=== PATIENT | female | born 1950 | race Caucasian/White ===

== ENCOUNTER 2024-03-20 11:15 | Outpatient (RCR) | payer MEDICARE, SELFPAY ==
--- NOTE | 2024-01-04 13:13 | ST.OPIE ---
Visit Care Team Role Provider Type Mojgan Winston PA-C Family Provider Non-Staff Primary Care Provider Specialty: Medical Address: [address] [place] [address], [id number] Email: Ralf Watkins MD Attending Provider Physician Referring Provider Specialty: Ear, Nose, Throat Address: [address] [place] [address], [id number] Email: [email or web address] Speech-Language Pathology Initial Evaluation BILL CUTTER Voice Resonance Evaluation Start: 01/03/24 15:19 Freq: Status: Active Protocol: Document 01/03/24 15:19 ZITA (Rec: 01/03/24 15:21 MA [id number]) Voice and Resonance Assessment Session Time Visit Start Time 15:15 Visit Stop Time 16:00 Total Visit Minutes 45 Visit Information Visit Number Initial Evaluation Plan of Care Dates 01/03/24-04/04/24 Insurance Information Medicare Next Note Type Next Note Type Treatment Note Referral Referring Physician Dr. Watkins ENT Reason for Referral Vocal cord paralysis Setting Setting Outpatient Care Patient History Patient History Pt is a 73 year old female seen this date for voice evaluation d/y vocal cord paralysis s/p parathyroidectomy on 10/04/23. She reports no voice difficulties prior to surgery. She states her vocal quality varies throughout the day. She reports plan to have surgery on vocal cords, however no date confirmed and still working on the referral/auth. She reports right vocal cord paralysis that was identified during her ENT visit where she had an endoscopy completed. She reports her voice issue frustrates her more than anything and she would love to get it figured out sooner rather than later. Hearing Hearing Level Normal Vision Vision Status Not Impaired Occupational Status Occupation Status Retired Previous Therapy Previous Speech-Language Therapy No Oral Motor Assessment Source: [employer] (FAWAD). Oral-Motor Eval Completed Yes Oral-Motor Assessment Oral motor exam revealed oral musculature WFL. - Laryngeal Performance S/Z Ratio S/Z Ratio 2.7 Functional for Speech Yes: Breathy Reduced Laryngeal Function Relative to Yes Respiration Voice Handicap Index Function Subtotal 23 Physical Subtotal 18 Emotional Subtotal 15 Total Score 56 Severity Moderate (31-60) Maximum Phonation Time MPT Norms: Women (15-25) Men (25-35) Loudness (50-60 dB); Speaking Rate: Oral Reading of Sentences (190 Words Per Minute); Oral Reading of Paragraphs (160-170 WPM); Speaking Rate in Conversation (150-250 WPM) Maximum Phonation Time 16.5 Maximum Phonation Time Adequate for Speech Pitch [place] Pitch [place] Pitch Breaks Muscle Tension Assessment Muscle Tension Assessment None Breath Support Breath Support At Rest Thoracic Breath Support Sustained Phonation Thoracic Breath Support Conversation Thoracic Postural Alignment Stance Balanced Findings Findings Moderate Impairment Observations Pt presents with a moderate voice impairment characterized by breathy vocal quality and low volume secondary to right vocal fold paralysis. She reports on the Voice Handicap Index-10 (VHI-10) that her voice problem always upsets her and that people have trouble understanding her in a noisy room. She reports overall frustration with her voice problem and states it has been impacting her social life and would like to be able to communicate more effectively. ST is warranted in order to improve vocal quality through use of vocal adduction exercises and vocal function exercises. Prognosis Rehabilitation Potential Excellent - Recommendations Treatment Recommended Yes Treatment Frequency/Duration 1x/week 3 months Therapy Recommendations Voice therapy is recommended to improve vocal quality through use of vocal adduction exercises and vocal function exercises Short Term Goals STG 1: Pt will complete vocal adduction exercises to improve vocal quality and patient's overall intelligibility of verbal communication. STG 2: Pt will demonstrate knowledge of good vocal hygiene practices in order to promote carryover. STG 3: Pt will decrease VHI-10 score from a 56 down in the range of 0-30. Relay Engineer Goals LTG 1: Pt will successfully and independently verbally express novel ideas/questions at an improve overall vocal quality. Patient/Caregiver Education Patient/Family Education Described results of evaluation,Patient Understanding,Patient Needs More Info
--- NOTE | 2024-01-04 13:13 | ST.OPPOC ---
Physical, Occupational & Speech Therapy At [facility] Visit Care Team Role Provider Type Mojgan Winston PA-C Family Provider Non-Staff Primary Care Provider Address: [address] [place] [address], [address] Ralf Watkins MD Attending Provider Physician Referring Provider Address: [address] [place] [address], [address] Speech Pathology Plan of Care Plan of Care Dates 01/03/24-04/04/[address] Watkins ENT Patient History Pt is a 73 year old female seen this date for voice evaluation d/y vocal cord paralysis s/p parathyroidectomy on 10/04/23. She reports no voice difficulties prior to surgery. She states her vocal quality varies throughout the day. She reports plan to have surgery on vocal cords, however no date confirmed and still working on the referral/auth. She reports right vocal cord paralysis that was identified during her ENT visit where she had an endoscopy completed. She reports her voice issue frustrates her more than anything and she would love to get it figured out sooner rather than later. Voice/Resonance Findings Moderate Impairment Voice/Resonance Prognosis Excellent Voice/Resonance Yes Recommendations Voice/Resonance Treatment 1x/week 3 months Frequency Therapy Recommendations Voice therapy is recommended to improve vocal quality through use of vocal adduction exercises and vocal function exercises Short Term Goals STG 1: Pt will complete vocal adduction exercises to improve vocal quality and patient's overall intelligibility of verbal communication. STG 2: Pt will demonstrate knowledge of good vocal hygiene practices in order to promote carryover. STG 3: Pt will decrease VHI-10 score from a 56 down in the range of 0-30. Fdc Goals LTG 1: Pt will successfully and independently verbally express novel ideas/questions at an improve overall vocal quality. Comment: Electronically Signed by: DONNA Grady 01/04/24 [id number] If you are in agreement with this Plan of Care, please return a signed and dated copy. I have reviewed this Plan of Care and certify that the skilled therapy services above are required to meet the patient?s needs. Physician Signature Date Printed Name and Credentials Clinical Instructor Signature Printed Name and Credentials
--- NOTE | 2024-01-31 17:09 | ST.OPTN ---
Visit Care Team Role Provider Type Mojgan Winston PA-C Family Provider Non-Staff Primary Care Provider Address: [address] [place] [address], [place], [address] Ralf Watkins MD Attending Provider Physician Referring Provider Address: [address] [place] [address], [address] DRAGLINE OPERATOR HELPER Treatment Note DRAGLINE OPERATOR HELPER Treatment Note Start: 01/31/24 17:04 Freq: Status: Active Protocol: Document 01/31/24 17:04 ZITA (Rec: 01/31/24 17:09 CA [id number]) Speech Pathology Treatment Note Session Time Visit Start Time 16:45 Visit Stop Time 17:05 Total Visit Minutes 20 Visit Information Visit Number 2 Plan of Care Dates 01/03/24-04/04/24 Next Note Type Next Note Type Treatment Note General Information Patient History Pt is a 73 year old female seen this date for voice evaluation d/y vocal cord paralysis s/p parathyroidectomy on 10/04/23. She reports no voice difficulties prior to surgery. She states her vocal quality varies throughout the day. She reports plan to have surgery on vocal cords, however no date confirmed and still working on the referral/auth. She reports right vocal cord paralysis that was identified during her ENT visit where she had an endoscopy completed. She reports her voice issue frustrates her more than anything and she would love to get it figured out sooner rather than later. Subjective Observations/Patient Presentation Pt arrived to therapy on time. Objective Cattle Sorter Goals LTG 1: Pt will successfully and independently verbally express novel ideas/questions at an improve overall vocal quality. Treatment Activities Vocal function exercises, vocal adduction exercises Assessment Patient Response to Treatment Excellent Rehab Potential Excellent Progress Towards Goals Good Progress Assessment of Improvement Pt reports she has been doing her voice exercises at home, but not consistently d/t vacation. However, she states she is going to start doing them more consistently. She states no changes to her voice . Her voice appeared soft, breathy. ST facilitated vocal function/adduction exercises in order to improve vocal quality. Pt completed 10 reps of sustained /ah/ and pitch glides up/down, which Pt completed with 100% accuracy with no pitch breaks and clear voice. She sustained /ah/ for about 16 seconds. She completed 10 reps of vocal adduction exercises with increasing vocal hoarseness as task progressed. Pt benefited from rest breaks and drinking water in between reps, which ST encouraged Pt also do at home. Pt reports she has surgery scheduled february to plump up her vocal cord. She states she has an appointment with Dr. Watkins, ENT in about 2 weeks to discuss the surgery. ST recommended Pt continue voice exercises at home 2-3x/day [address] also recommended Pt be seen after visit with ENT and after surgery. Pt verbalized understanding.
--- NOTE | 2024-02-15 14:22 | ST.OPTN ---
Visit Care Team Role Provider Type Mojgan Winston PA-C Family Provider Non-Staff Primary Care Provider Address: [address] [place] [address], [place], [address] Ralf Watkins MD Attending Provider Physician Referring Provider Address: [address] [place] [address], [address] ELECTRICAL HELPER Treatment Note ELECTRICAL HELPER Treatment Note Start: 01/31/24 17:04 Freq: Status: Active Protocol: Document 02/15/24 14:18 MA (Rec: 02/15/24 14:22 MA [id number]) Speech Pathology Treatment Note Session Time Visit Start Time 13:45 Visit Stop Time 14:15 Total Visit Minutes 30 Visit Information Visit Number 3 Plan of Care Dates 01/03/24-04/04/24 Next Note Type Next Note Type Treatment Note General Information Patient History Pt is a 73 year old female seen this date for voice evaluation d/y vocal cord paralysis s/p parathyroidectomy on 10/04/23. She reports no voice difficulties prior to surgery. She states her vocal quality varies throughout the day. She reports plan to have surgery on vocal cords, however no date confirmed and still working on the referral/auth. She reports right vocal cord paralysis that was identified during her ENT visit where she had an endoscopy completed. She reports her voice issue frustrates her more than anything and she would love to get it figured out sooner rather than later. Subjective Observations/Patient Presentation Pt arrived to therapy on time. Pt reports she has been doing her exercises, however does not notice a huge change in her voice at this time. Objective [facility] Goals LTG 1: Pt will successfully and independently verbally express novel ideas/questions at an improve overall vocal quality. Treatment Activities vocal adduction exercises, resonance exercises Assessment Patient Response to Treatment Excellent Rehab Potential Excellent Progress Towards Goals Good Progress Assessment of Improvement Pt reports she has been doing her voice exercises at home. She states no changes to her voice. Her voice appeared soft , breathy. ST facilitated vocal function/adduction exercises in order to improve vocal quality. Pt completed 10 reps of sustained /ah/ and pitch glides up/down, which Pt completed with 100% accuracy with no pitch breaks and clear voice. She sustained /ah/ for about 18 seconds with clear vocal quality. She completed 10 reps of vocal adduction exercises with increasing vocal hoarseness as task progressed. Pt benefited from rest breaks and drinking water in between reps, which ST encouraged Pt also do at home. Pt reports she has surgery scheduled february to plump up her vocal cord. She states she has an appointment with Dr. Watkins, ENT in about 1 week to discuss the surgery. ST introduced resonance exercises and provided explanation as to why . Pt completed resonance exercises with 100% accuracy requiring mild cues. ST recommended Pt continue voice exercises at home 2-3x/day [address] also recommended Pt be seen after visit with ENT and after surgery. Pt verbalized understanding.
--- NOTE | 2024-03-20 11:48 | ST.OPTN ---
Visit Care Team Role Provider Type Mojgan Winston PA-C Family Provider Non-Staff Primary Care Provider Address: [address] [place] [address], [address] Ralf Watkins MD Attending Provider Physician Referring Provider Address: [address] [place] [address], [address] HEARING AND SPEECH ASSISTANT Treatment Note HEARING AND SPEECH ASSISTANT Treatment Note Start: 01/31/24 17:04 Freq: Status: Active Protocol: Document 03/20/24 11:41 MA (Rec: 03/20/24 11:48 MA [id number]) Speech Pathology Treatment Note Session Time Visit Start Time 11:15 Visit Stop Time 11:45 Total Visit Minutes 30 Visit Information Visit Number 4 Plan of Care Dates 01/03/24-04/04/24 Next Note Type Next Note Type Discharge Summary General Information Patient History Pt is a 73 year old female seen this date for voice evaluation d/y vocal cord paralysis s/p parathyroidectomy on 10/04/23. She reports no voice difficulties prior to surgery. She states her vocal quality varies throughout the day. She reports plan to have surgery on vocal cords, however no date confirmed and still working on the referral/auth. She reports right vocal cord paralysis that was identified during her ENT visit where she had an endoscopy completed. She reports her voice issue frustrates her more than anything and she would love to get it figured out sooner rather than later. Subjective Identification Type Name Observations/Patient Presentation Pt arrived to therapy on time. Objective Short Term Goals STG 1: Pt will complete vocal adduction exercises to improve vocal quality and patient's overall intelligibility of verbal communication.- MET STG 2: Pt will demonstrate knowledge of good vocal hygiene practices in order to promote carryover.- MET STG 3: Pt will decrease VHI-10 score from a 56 down in the range of 0-30.- MET Physical Anthropologist Goals LTG 1: Pt will successfully and independently verbally express novel ideas/questions at an improve overall vocal quality. - MET Treatment Activities Discharge recommendations, VHI -10 Assessment Patient Response to Treatment Excellent Rehab Potential Excellent Progress Towards Goals Good Progress,Appropriate for Discharge Assessment of Overall Progress Improving Assessment of Improvement Pt reports she had surgery on her vocal fold about 2 weeks ago and notices a huge improvement with her voice. She states today it sounds a little more hoarse, but overall is very happy with her voice quality. She reports she continues to complete voice exercises, however reduced how much she has been doing them in order to rest voice after surgery. ST assessed maximum phonation time with sustained /ah/. Pt sustained /ah/ for about 18 seconds with clear vocal quality. Pt with overall improved quality and loudness. ST facilitated conversation in regards to discharge from therapy. Pt in agreeance. ST facilitated VHI-10. Pt scored a total score of 20 (mild) compared to initial eval score of 56 (moderate) indicating an overall increase in Pt's subjective views of voice. ST recommends Pt continue to practice good vocal hygiene practices and complete voice exercises at home 2-3x/day [address] recommends Pt return to therapy if any changes occur. Pt verbalized understanding. Reviewed with Patient Goals,Progress Being Made,Home Exercise Program Patient/Caregiver Understanding Excellent Plan Frequency of Treatment No Further Therapy Provided Patient/Caregiver Instruction Home Exercise Program,Plan of Care,Questions/Concerns
== END 2024-03-21 10:40 | disposition home or self-care (01) ==
LOC: SP 11:15
PROVIDERS: Family Provider Physician Assistant; PCP Physician Assistant; Referring Provider Otolaryngology; Visit Provider Otolaryngology
DX: J38.00 Paralysis of vocal cords and larynx, unspecified (principal)
CPT/HCPCS: 92507; 92523

== ENCOUNTER 2024-08-14 14:30 | Outpatient (RCR) | payer MEDICARE, SELFPAY ==
--- NOTE | 2024-05-22 17:41 | ST.OPIE ---
Visit Care Team Role Provider Type Mojgan Winston PA-C Family Provider Non-Staff Primary Care Provider Specialty: Medical Address: [address] [place], [address] Email: CLARENCE Bryan Attending Provider Non-Staff Referring Provider Specialty: Family Practice Address: [address], [place], [address] Email: Speech-Language Pathology Initial Evaluation CLINICAL MANAGER Voice Resonance Evaluation Start: 05/22/24 15:50 Freq: Status: Active Protocol: Document 05/22/24 15:52 ZITA (Rec: 05/22/24 16:02 ZITA [id number]) Voice and Resonance Assessment Session Time Visit Start Time 15:15 Visit Stop Time 16:00 Total Visit Minutes 45 Visit Information Visit Number Initial Evaluation Plan of Care Dates 05/22/24-08/22/24 Insurance Information Medicare Referral Referring Physician Dr. Nassar Reason for Referral Vocal cord paralysis Setting Setting Outpatient Care Patient History Patient History Pt is a 73 year old female seen this date for voice evaluation d/t vocal cord paralysis s/p parathyroidectomy on 10/04/23. Pt is familiar to this therapist d/t participating in speech therapy from 01/04/24-. Pt discharged from therapy d/t having Prolaryn gel injection into R paralyzed vocal cord on 03/07/24 with improvements in speech. Pt returns d/t her stating injection helped her voice for about 2 months and then started to fail about 2-3 weeks ago. She states that she choked on a pill around that time resulting in a lot of coughing, which she reports is about the time her voice started to sound hoarse again. She reports plan to see a Tax Accountant beginning of July, if not sooner if she can get in. She states her voice isn't as bad as it was prior to injection, however continues to sound hoarse with reduced volume, which causes the Pt a lot of frustration. Hearing Hearing Level Normal Vision Vision Status Not Impaired Occupational Status Occupation Status Retired Previous Therapy Previous Speech-Language Therapy Yes History of Previous Therapy Pt participated in outpatient speech therapy at this clinic with this therapist from December- Sept 2024. Oral Motor Assessment Source: [employer] (FAWAD). Oral-Motor Eval Completed Yes Oral-Motor Assessment Oral motor exam revealed oral musculature WFL. - Laryngeal Performance S/Z Ratio S/Z Ratio 4.6 Functional for Speech Yes: Breathy Reduced Laryngeal Function Relative to Yes Respiration Voice Handicap Index Function Subtotal 13 Physical Subtotal 17 Emotional Subtotal 15 Total Score 45 Severity Moderate (31-60) Maximum Phonation Time MPT Norms: Women (15-25) Men (25-35) Loudness (50-60 dB); Speaking Rate: Oral Reading of Sentences (190 Words Per Minute); Oral Reading of Paragraphs (160-170 WPM); Speaking Rate in Conversation (150-250 WPM) Maximum Phonation Time 16.5 Maximum Phonation Time Adequate for Speech Pitch [place] Pitch [place] Pitch Breaks Muscle Tension Assessment Muscle Tension Assessment None Breath Support Breath Support At Rest Thoracic Breath Support Sustained Phonation Thoracic Breath Support Conversation Thoracic Postural Alignment Stance Balanced Voice Pitch Range Norms: Women (100-300 Hz) Men (70-250 Hz) Fundamental Frequency Norms: Women (Mean: 225 Hz; Range: 155-334 Hz) Men ( Mean: 128 Hz; Range: 85-196 Hz) Voice Loudness Mildly Soft/Quiet Voice Phonatory-based Quality Breathy,Hoarse Resonance Nasal Resonance Normal Findings Findings Mild-Moderate Impairment Observations Pt presents with a mild- moderate voice impairment characterized by breathy/ hoarse vocal quality and low volume secondary to right vocal fold paralysis. She reports on the Voice Handicap Index-10 (VHI-10) a score of 45, which is reduced from previous evaluation. She reports overall frustration with her voice problem and states it has been impacting her social life and would like to be able to communicate more effectively. Pt reports plan to do voice therapy as well as going back to an ENT to see about getting another injection. ST is warranted in order to improve vocal quality through use of vocal adduction exercises and vocal function exercises. Prognosis Rehabilitation Potential Excellent - Recommendations Treatment Recommended Yes Treatment Frequency/Duration 1x/week 3 months Therapy Recommendations Voice therapy is recommended to improve vocal quality through use of vocal adduction exercises and vocal function exercises Short Term Goals STG 1: Pt will complete vocal adduction exercises/resonant voice exercises to improve vocal quality and patient's overall intelligibility of verbal communication. STG 2: Pt will demonstrate knowledge of good vocal hygiene practices in order to promote carryover. STG 3: Pt will decrease VHI-10 score from a 45 down in the range of 0-30. Care Home Goals LTG 1: Pt will successfully and independently verbally express novel ideas/questions at an improve overall vocal quality. Referrals Referrals ENT Patient/Caregiver Education Patient/Family Education Described results of evaluation,Patient Understanding,Patient Needs More Info
--- NOTE | 2024-05-22 17:42 | ST.OPPOC ---
Physical, Occupational & Speech Therapy At [facility] Visit Care Team Role Provider Type Mojgan Winston PA-C Family Provider Non-Staff Primary Care Provider Address: [address], [place], [address] CLARENCE Bryan Attending Provider Non-Staff Referring Provider Address: [address], [place], [address] Speech Pathology Plan of Care Plan of Care Dates 05/22/24-08/22/[address] Nassar Patient History Pt is a 73 year old female seen this date for voice evaluation d/t vocal cord paralysis s/p parathyroidectomy on 10/04/23. Pt is familiar to this therapist d/t participating in speech therapy from 01/04/24-03/20/25. Pt discharged from therapy d/t having Prolaryn gel injection into R paralyzed vocal cord on 03/07/24 with improvements in speech. Pt returns d/t her stating injection helped her voice for about 2 months and then started to fail about 2-3 weeks ago. She states that she choked on a pill around that time resulting in a lot of coughing, which she reports is about the time her voice started to sound hoarse again. She reports plan to see a Textile Finisher beginning of July, if not sooner if she can get in. She states her voice isn't as bad as it was prior to injection, however continues to sound hoarse with reduced volume, which causes the Pt a lot of frustration . Voice/Resonance Findings Mild-Moderate Impairment Voice/Resonance Prognosis Excellent Voice/Resonance Yes Recommendations Voice/Resonance Treatment 1x/week 3 months Frequency Therapy Recommendations Voice therapy is recommended to improve vocal quality through use of vocal adduction exercises and vocal function exercises Short Term Goals STG 1: Pt will complete vocal adduction exercises/resonant voice exercises to improve vocal quality and patient's overall intelligibility of verbal communication. STG 2: Pt will demonstrate knowledge of good vocal hygiene practices in order to promote carryover. STG 3: Pt will decrease VHI-10 score from a 45 down in the range of 0-30. Lens Molding Equipment Operator Goals LTG 1: Pt will successfully and independently verbally express novel ideas/questions at an improve overall vocal quality. Comment: Electronically Signed by: DONNA Gardy 05/22/243 If you are in agreement with this Plan of Care, please return a signed and dated copy. I have reviewed this Plan of Care and certify that the skilled therapy services above are required to meet the patient?s needs. Physician Signature Date Printed Name and Credentials Clinical Instructor Signature Printed Name and Credentials
--- NOTE | 2024-05-29 15:47 | ST.OPTN ---
Visit Care Team Role Provider Type Mojgan Winston PA-C Family Provider Non-Staff Primary Care Provider Address: [address], [place], [address] CLARENCE Bryan Attending Provider Non-Staff Referring Provider Address: [address], [place], [address] EQUINE INTERN Treatment Note EQUINE INTERN Treatment Note Start: 05/29/24 15:40 Freq: Status: Active Protocol: Document 05/29/24 15:40 MA (Rec: 05/29/24 15:47 MA [id number]) Speech Pathology Treatment Note Session Time Visit Start Time 15:15 Visit Stop Time 15:45 Total Visit Minutes 30 Visit Information Visit Number 2 Plan of Care Dates 05/22/24-08/22/24 General Information Patient History Pt is a 73 year old female seen this date for voice evaluation d/t vocal cord paralysis s/p parathyroidectomy on 10/04/23. Pt is familiar to this therapist d/t participating in speech therapy from 01/04/24-. Pt discharged from therapy d/t having Prolaryn gel injection into R paralyzed vocal cord on 03/07/24 with improvements in speech. Pt returns d/t her stating injection helped her voice for about 2 months and then started to fail about 2-3 weeks ago. She states that she choked on a pill around that time resulting in a lot of coughing, which she reports is about the time her voice started to sound hoarse again. She reports plan to see a Vice President Payment beginning of July, if not sooner if she can get in. She states her voice isn't as bad as it was prior to injection, however continues to sound hoarse with reduced volume, which causes the Pt a lot of frustration. Subjective Identification Type Name Observations/Patient Presentation Pt arrived to therapy on time. Objective Detention Goals LTG 1: Pt will successfully and independently verbally express novel ideas/questions at an improve overall vocal quality. Treatment Activities Vocal cord adduction exercises , diaphragmatic breathing exercises Assessment Patient Response to Treatment Excellent Rehab Potential Good Impairments Identified Voice Assessment of Overall Progress Unchanged Assessment of Improvement Pt reports she thinks her voice has become worse. She states she thinks it sounds worse after her voice exercises. ST recommended Pt pull back on her voice exercises and also to break them up into smaller increments throughout the day. She reports she has an appointment with Dr. Mayorga in [place] on 05/31/24. ST facilitated vocal adduction exercises and respiration exercises to assist with unilateral vocal fold paralysis. Pt completed 10 reps of vocal fold adduction exercises, specifically saying /ah/ while bracing the bottom of her chair. She completed 5 diaphragmatic breaths prior to adduction exercises, requiring minimal cues to exhale longer than the inhale. Pt demonstrated pitch breaks during last vocal fold adduction exercise. ST recommends Pt continue voice HEP and to report back in regards to the results from her appointment with the ENT this week. Pt verbalized understanding. Reviewed with Patient Goals,Progress Being Made,Home Exercise Program
--- NOTE | 2024-06-06 15:40 | ST.OPTN ---
Visit Care Team Role Provider Type Mojgan Winston PA-C Family Provider Non-Staff Primary Care Provider Address: [address], [place], [address] CLARENCE Bryan Attending Provider Non-Staff Referring Provider Address: [address], [place], [address] GUARDIAN AD LITEM Treatment Note GUARDIAN AD LITEM Treatment Note Start: 05/29/24 15:40 Freq: Status: Active Protocol: Document 06/06/24 15:36 MA (Rec: 06/06/24 15:40 MA [id number]) Speech Pathology Treatment Note Session Time Visit Start Time 15:15 Visit Stop Time 15:45 Total Visit Minutes 30 Visit Information Visit Number 3 Plan of Care Dates 05/22/24-08/22/24 General Information Patient History Pt is a 73 year old female seen this date for voice evaluation d/t vocal cord paralysis s/p parathyroidectomy on 10/04/23. Pt is familiar to this therapist d/t participating in speech therapy from 01/04/24-. Pt discharged from therapy d/t having Prolaryn gel injection into R paralyzed vocal cord on 03/07/24 with improvements in speech. Pt returns d/t her stating injection helped her voice for about 2 months and then started to fail about 2-3 weeks ago. She states that she choked on a pill around that time resulting in a lot of coughing, which she reports is about the time her voice started to sound hoarse again. She reports plan to see a Home Health Care Physician beginning of July, if not sooner if she can get in. She states her voice isn't as bad as it was prior to injection, however continues to sound hoarse with reduced volume, which causes the Pt a lot of frustration. Subjective Identification Type Name Observations/Patient Presentation Pt arrived to therapy on time. Objective Senior Living Goals LTG 1: Pt will successfully and independently verbally express novel ideas/questions at an improve overall vocal quality. Treatment Activities Vocal cord adduction exercises , diaphragmatic breathing exercises, conversation in regards to next steps in therapy Assessment Patient Response to Treatment Excellent Rehab Potential Good Impairments Identified Voice Assessment of Overall Progress Unchanged Assessment of Improvement Pt brought in results from her ENT visit on 05/31, which consisted of images from her videostroboscopy. 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 ENT, Dr. Mayorga that saw her recommended repeat prolaryn injection. Pt reports she is going to schedule a time to have this done tomorrow and will report back when that appointment is scheduled. ST facilitated vocal adduction exercises and respiration exercises to assist with unilateral vocal fold paralysis. Pt completed 10 reps of vocal fold adduction exercises, specifically saying /ah/ while bracing the bottom of her chair. She completed 5 diaphragmatic breaths prior to adduction exercises, requiring minimal cues to exhale longer than the inhale. Pt demonstrated pitch breaks during last vocal fold adduction exercise. ST recommends Pt continue voice HEP and to report back in regards to her vocal fold injection appointment. ST recommended Pt be seen on a bi -weekly status d/t Pt independent with HEP, however therapy continues to be warranted in order to continue to assess and monitor voice. Pt verbalized understanding. Reviewed with Patient Goals,Progress Being Made,Home Exercise Program
--- NOTE | 2024-08-14 14:51 | ST.OPTN ---
Visit Care Team Role Provider Type Mojgan Winston PA-C Family Provider Non-Staff Primary Care Provider Address: [address], [place], [address] CLARENCE Bryan Attending Provider Non-Staff Referring Provider Address: [address], [place], [address] PHYSICAL THERAPY AIDES TEACHER Treatment Note PHYSICAL THERAPY AIDES TEACHER Treatment Note Start: 05/29/24 15:40 Freq: Status: Active Protocol: Document 08/14/24 14:41 MA (Rec: 08/14/24 14:44 MA [id number]) Speech Pathology Treatment Note Session Time Visit Start Time 14:30 Visit Stop Time 15:00 Total Visit Minutes 30 Visit Information Visit Number 4 Plan of Care Dates 05/22/24-08/22/24 General Information Patient History Pt is a 73 year old female seen this date for voice evaluation d/t vocal cord paralysis s/p parathyroidectomy on 10/04/23. Pt is familiar to this therapist d/t participating in speech therapy from 01/04/24-. Pt discharged from therapy d/t having Prolaryn gel injection into R paralyzed vocal cord on 03/07/24 with improvements in speech. Pt returns d/t her stating injection helped her voice for about 2 months and then started to fail about 2-3 weeks ago. She states that she choked on a pill around that time resulting in a lot of coughing, which she reports is about the time her voice started to sound hoarse again. She reports plan to see a Senior Examiner beginning of July, if not sooner if she can get in. She states her voice isn't as bad as it was prior to injection, however continues to sound hoarse with reduced volume, which causes the Pt a lot of frustration. Subjective Identification Type Name Observations/Patient Presentation Pt arrived to therapy on time. Objective Short Term Goals STG 1: Pt will complete vocal adduction exercises/resonant voice exercises to improve vocal quality and patient's overall intelligibility of verbal communication.- MET STG 2: Pt will demonstrate knowledge of good vocal hygiene practices in order to promote carryover. - MET STG 3: Pt will decrease VHI-10 score from a 45 down in the range of 0-30.- MET. Pt scored 24 Mica Sizer Goals LTG 1: Pt will successfully and independently verbally express novel ideas/questions at an improve overall vocal quality. - MET Treatment Activities Conversation related to HEP and recent laryngoscopy with injection to the R vocal cord. Assessment Patient Response to Treatment Excellent Rehab Potential Excellent Impairments Identified Voice Progress Towards Goals Appropriate for Discharge Assessment of Overall Progress Unchanged Assessment of Improvement Pt brought in results from her ENT visit on 08/07/24, where she had another prolaryn injection procedure to the R vocal cord. She reports she continues to sound hoarse, however may be d /t her still healing from the procedure. From ST perspective she sounds a lot better with clearer vocal quality compared the last visit, however slightly hoarse. Pt reports the vocal adduction exercises, specifically saying /ah/ were causing her voice to sound worse, however she continued with the diaphragmatic breathing exercises and lip trills. ST assessed max phonation time with Pt able to hold /ah/ for about 12 seconds. Pt reports she has been trying to be easy on her voice. ST advised Pt to continued diaphragmatic breathing exercises and resonant voice exercises provided during last visit. ST assessed Pt's perception of her voice quality post surgery compared to her initial evaluation. Pt scored a 24, which indicates a mild severity and minimal amount of handicap related to her voice , compared to initial evaluation score of 45, which was moderate. ST recommended Pt continue to exercises specified above and to return to speech therapy is any changes occur. Pt verbalized understanding. Reviewed with Patient Goals,Progress Being Made,Home Exercise Program Plan Amount of Therapy Recommended No Further Therapy
== END 2024-08-16 11:00 | disposition home or self-care (01) ==
LOC: SP 14:30
PROVIDERS: Family Provider Physician Assistant; PCP Physician Assistant
DX: E21.0 Primary hyperparathyroidism (principal); D35.1 Benign neoplasm of parathyroid gland; E89.2 Postprocedural hypoparathyroidism; J38.00 Paralysis of vocal cords and larynx, unspecified
CPT/HCPCS: 92507; 92523